=== PATIENT | female | born 1960 | race African-American/Black ===

== ENCOUNTER 2016-11-16 09:21 | Emergency (ER) | payer OTHER, SELFPAY ==
[2016-11-16 10:00] LABS: #Basophils 0.1 thou/uL (0.0-0.2); #Eosinphils 0.1 thou/uL (0.0-0.7); #Monocytes 0.3 thou/uL (0.11-0.59); #Neutrophils 2.1 thou/uL (1.40-6.50); %Basophils 1.5 % (0.0-1.0); %Eosinophils 1.7 % (0.0-10.0); %Lymphocytes 44.1 % (21.0-51.0); %Monocytes 6.8 % (0.0-10.0); %Neutrophils 45.9 % (42.0-75.0); Hemoglobin 11.7 g/dL (12.0-16.0); Mean Corpuscular HGB CONC 33.3 g/dL (32.0-36.0); Mean Corpuscular Hemoglobin 27.5 pg (27.0-31.0); Mean Corpuscular Volume 82.5 fl (81.0-99.0); Platelet Count 184 thou/uL (130-400); RBC Distribution Width 12.4 % (11.5-14.5); Red Blood Cell (RBC) Count 4.27 mill/uL (4.20-5.40); White Blood Cell (WBC) Count 4.5 thou/uL (4.8-10.8)
[2016-11-16 10:13] LABS: ALT (SGPT) 10 U/L (0-55); AST (SGOT) 13 U/L (5-34); Albumin 4.1 g/dL (3.5-5.0); Alkaline Phosphatase 64 U/L (40-150); Anion Gap 15 mmol/L (10-20); BUN (Urea Nitrogen) 12 mg/dL (9.8-20.1); Bilirubin, Total 0.8 mg/dL (0.2-1.2); Calc. Creatinine Clearance 0 mL/min (70-130); Calcium 9.5 mg/dL (7.8-10.44); Carbon Dioxide 26 mmol/L (22-29); Chloride 106 mmol/L (98-107); Estimated GFR-MDRD Greater than 90; Globulin 2.7 g/dL (2.4-3.5); Glucose 66 mg/dL (70-105); Potassium 3.8 mmol/L (3.5-5.1); Protein, Total 6.8 g/dL (6.0-8.3); Sodium 143 mmol/L (136-145)
[2016-11-16 10:15] LABS: CKMB 1.9 ng/mL (0-6.6); Troponin I 0.018 ng/mL (< 0.028)
--- NOTE | 2016-11-16 10:27 | ERRECORD ---
[facility] EMERGENCY RECORD HPI CHEST PAIN (09:33 BPIC) CHIEF COMPLAINT: Patient presents for evaluation of chest pain, ongoing. HISTORIAN: History provided by patient, pt states that she quit smoking 3 weeks ago and has a lot of stress with teenage granddaughters. she has been feeling abnormal since she quit smoking and for the past 4 days has had some chest discomfort and arm tingling. she does have some history of GERD and recently changed medication but states that she has not started taking the new medicine yet. she is also allergic to aspirin and would like to avoid medicine if possible. reports a negative stress test years ago. her pain worsened when she was cleaning a bathtub 4 days ago and it has been constant since then. the pain does worsen slightly with certain movements. ROS (09:37 BPIC) CONSTITUTIONAL: Negative constitutional review of systems, Historian denies chills, denies fever. EYES: Negative eye review of systems. ENT: Negative ears, nose, throat review of systems. CARDIOVASCULAR: Historian reports chest pain, denies dyspnea on exertion, denies edema, denies exercise intolerance, denies syncope, denies palpitations. RESPIRATORY: Negative respiratory review of systems, Historian denies cough, denies shortness of breath. GI: Negative gastrointestinal review of systems, Historian denies abdominal pain, denies constipation, denies diarrhea. MUSCULOSKELETAL: Negative musculoskeletal review of systems. SKIN: Negative skin review of systems. NEUROLOGIC: Negative neurologic review of systems. ENDOCRINE: Negative endocrine review of systems. HEMO/LYMPHATIC: Normal hematologic/lymphatic system review. PSYCHIATRIC: Negative psychiatric review of systems. NOTES: All other ROS is negative except as listed in HPI. PAST MEDICAL HISTORY MEDICAL HISTORY: Flu vaccine not up to date, Past medical history includes history of hypertension, which has been treated. (09:30 SFRE) FEMALE SURGICAL HISTORY: Surgical history of tubal ligation. (09:30 SFRE) PSYCHIATRIC HISTORY: No previous psychiatric history. (09:30 SFRE) SOCIAL HISTORY: Patient denies alcohol use, Patient denies drug use, Patient has no smoking history. (09:30 SFRE) NOTES: I have reviewed and agree with the PMH/PSxH/FamHx/SocHx obtained by the nurse. (09:37 BPIC) KNOWN ALLERGIES &a-1R&a+25V*p+0X*l7898O*c202B*c15G*c2P*p-0X&a-25V&a+1R Name: Annie Starkey : 1960 F56 MedRec: [id number] AcctNum: [id number] Prepared: MonNov 16, 2016 13:13 by Interface Page 1 of 3 pMD [facility] EMERGENCY RECORD Adult Aspirin CURRENT MEDICATIONS (09:28 SFRE) Toprol XL: TABLET, EXTENDED RELEASE 24 HR : Strength - 25 mg : ORAL Patient Dose: ???. VITAL SIGNS VITAL SIGNS: BP: 139/72, Pulse: 62, Resp: 18, Temp: 98.1 (Tympanic), Pain: 2 (Dull), O2 sat: 100 on Room Air, Time: 11/16/2016 09:26. (09:26 SFRE) BP: 129/75, Pulse: 56, Resp: 18, Temp: 98.1 (Tympanic), Pain: 2, O2 sat: 99 on Room Air, Time: 11/16/2016 09:52. (09:52 SFRE) BP: 125/79, Pulse: 55, Resp: 18, Temp: 98.1, Pain: 2, O2 sat: 100 on ra, Time: 11/16/2016 10:25. (10:25 SFRE) PHYSICAL EXAM (09:37 BPIC) CONSTITUTIONAL: Vital signs reviewed, Patient appears non toxic, Patient alert and oriented to person, place and time, Pt is in no apparent distress. HEAD: Head exam included findings of head atraumatic, normocephalic. EYES: Eye exam included findings of eyelids normal to inspection, Pupils equally round and reactive to light, Extraocular muscles intact. ENT: ENT exam normal, Nose exam normal, no nasal deformity, no bleeding from nares, Pharynx exam normal, Mouth exam normal, mucous membranes moist. NECK: Neck exam included findings of normal range of motion, Trachea midline. RESPIRATORY CHEST: Respiratory and chest exam normal, Breath sounds clear, No wheezing, No rales, Chest exam included findings of chest movement symmetrical, Chest expansion equal. CARDIOVASCULAR: Cardiovascular assessment normal, Cardiovascular exam included findings of heart rate regular rate and rhythm, Heart sounds normal, equal radial and DP pulses. ABDOMEN FEMALE: Abdominal exam included findings of abdomen nontender, Bowel sounds normal, no mass, no pulsatile masses, no peritoneal signs. BACK: Back exam included findings of normal inspection, range of motion normal, no costovertebral angle tenderness. UPPER EXTREMITY: Upper extremity exam included findings of inspection normal, Range of motion normal. LOWER EXTREMITY: Lower extremity exam included findings of inspection normal, Range of motion normal. NEURO: Neuro exam findings include patient oriented to person, place and time, Speech normal, no focal motor deficits, no focal sensory deficits. SKIN: Skin exam included findings of skin warm, dry, and normal in color. &a-1R&a+25V*p+0X*o2805Z*c202B*c15G*c2P*p-0X&a-25V&a+1R Name: Annie Starkey : 1960 F56 MedRec: [id number] AcctNum: [id number] Prepared: MonNov 16, 2016 13:13 by Interface Page 2 of 3 pMD [facility] EMERGENCY RECORD PSYCHIATRIC: Psychiatric exam included findings of patient oriented to person place and time, Normal affect. EKG INTERPRETATION (09:38 BPIC) 12 LEAD EKG INTERPRETATION: 12 lead EKG interpreted by Emergency Department Physician at time of study, 12 lead EKG shows, sinus bradycardia, Rate (beats per minute): 55, with no ectopics, Conduction normal, ST segments normal, T waves normal, Clinical impression:, non-specific EKG. RADIOLOGYINTERPRETATION (09:48 BPIC) CHEST: Chest films negative, no infiltrates, no pneumothorax. DOCTOR NOTES (10:20 BPIC) NOTES: Patient presents with atypical chest pain. Patient currently improved. Risk factors for PE, ACS, dissection all evaluated. Based on the history, exam, risk factor evaluation, and testing done here, I feel that patient is at low risk for dangerous etiologies such as PE, PTX, ACS, dissection. Other DDX considered includes pericarditis, pleurisy, costochondritis, chest wall pain, anxiety, GERD, hiatal hernia. I have encouraged the patient to arrange quick follow up and have advised of warning signs that should prompt more immediate return for evaluation. PROBLEM LIST No recorded problems DIAGNOSIS (10:20 BPIC) FINAL: PRIMARY: atypical chest pain. PRESCRIPTION No recorded prescriptions DISPOSITION PATIENT: Disposition Type: Discharge, Disposition: *Discharge Home, Condition: Good. (10:20 BPIC) Patient left the department. (10:32 SFRE) Shaw: BPIC=MD Celi, Isaias SFRE=MAGUI Fletcher, Radha &a-1R&a+25V*p+0X*l7447C*c202B*c15G*c2P*p-0X&a-25V&a+1R Name: Annie Starkey : 1960 F56 MedRec: [id number] AcctNum: [id number] Prepared: Rich Nov 16, 2016 13:13 by Interface Page 3 of 3 pMD MTDD
--- NOTE | 2016-11-16 10:33 | PICIS ---
[facility] EMERGENCY RECORD TRIAGE (MonNov 16, 2016 09:27 SFRE) TRIAGE NOTES: CP THAT STARTED MONDAY. (MonNov 16, 2016 09:27 SFRE) PATIENT: NAME: Annie Starkey, AGE: 56, GENDER: female, : Mon1960, TIME OF GREET: MonNov 16, 2016 09:22, PREFERRED LANGUAGE: Hungarian, ETHNICITY: Not or , ECODE BILLING MAP: [facility], SSN: [id number], Zip Code: [address], KG WEIGHT: 71.21, PHONE: , , , PERSON ID: [id number], PCP: MD CARIN, PREET. (MonNov 16, 2016 09:27 SFRE) COMPLAINT: CHEST PAIN,TINGLING RT ARM. (MonNov 16, 2016 09:27 SFRE) ADMISSION: URGENCY: 3 Urgent, ADMISSION SOURCE: Home, TRANSPORT: Walk-in, BED: ED -05. (MonNov 16, 2016 09:27 SFRE) ASSESSMENT: Symptoms began 12/10/2016, Symptoms began 4 days ago. (09:30 SFRE) Symptoms began 12/10/2016, Symptoms began 4 days ago. (09:38 SFRE) PAIN: Patient complains of pain described as, aching, dull, on a scale 0-10 patient rates pain as 2, Pain is intermittent, Aggravating factors:, Pain exacerbated by movement, No relieving factors. (09:30 SFRE) Patient complains of pain described as, aching, dull, on a scale 0-10 patient rates pain as 2, Pain is intermittent, Aggravating factors:, Pain exacerbated by movement, No relieving factors. (09:38 SFRE) IMMUNIZATIONS: Flu vaccine not up to date. (09:30 SFRE) SIRS SCORING: Heart Rate 55-109 (0), Temp range 96.8-101.1 (0), respiratory rate 12-24 (0), Mental Status altered: no (0). (09:30 SFRE) IMMUNIZATIONS: Flu vaccine not up to date. (09:38 SFRE) SIRS SCORING: Heart Rate 55-109 (0), Temp range 96.8-101.1 (0), respiratory rate 12-24 (0), Mental Status altered: no (0). (09:38 SFRE) TRIAGE SCREENING: Patient denies suicidal ideation, Patient denies presence of domestic violence. (09:30 SFRE) Patient denies suicidal ideation, Patient denies presence of domestic violence. (09:38 SFRE) PROVIDERS: TRIAGE NURSE: Radha Fletcher RN. (MonNov 16, 2016 09:27 SFRE) VITAL SIGNS: BP 139/72, Pulse 62, Resp 18, Temp 98.1, (Tympanic), Pain 2, (Dull), O2 Sat 100, on Room Air, Time 11/16/2016 09:26. (09:26 SFRE) PREVIOUS VISIT ALLERGIES: Adult Aspirin. (MonNov 16, 2016 09:27 SFRE) Adult Aspirin. (09:30 SFRE) Adult Aspirin. (09:38 SFRE) KNOWN ALLERGIES Adult Aspirin &a-1R&a+25V*p+0X*k2940N*c202B*c15G*c2P*p-0X&a-25V&a+1R Name: Annie Starkey : 1960 F56 MedRec: [id number] AcctNum: [id number] Prepared: MonNov 16, 2016 13:20 by Interface Page 1 of 7 pMD [facility] EMERGENCY RECORD CURRENT MEDICATIONS (09:28 SFRE) Toprol XL: TABLET, EXTENDED RELEASE 24 HR : Strength - 25 mg : ORAL Patient Dose: ???. VITAL SIGNS VITAL SIGNS: BP: 139/72, Pulse: 62, Resp: 18, Temp: 98.1 (Tympanic), Pain: 2 (Dull), O2 sat: 100 on Room Air, Time: 11/16/2016 09:26. (09:26 SFRE) BP: 129/75, Pulse: 56, Resp: 18, Temp: 98.1 (Tympanic), Pain: 2, O2 sat: 99 on Room Air, Time: 11/16/2016 09:52. (09:52 SFRE) BP: 125/79, Pulse: 55, Resp: 18, Temp: 98.1, Pain: 2, O2 sat: 100 on ra, Time: 11/16/2016 10:25. (10:25 SFRE) NURSING PROCEDURE: BEDSIDE RADIOLOGY (09:41 SFRE) BEDSIDE RADIOLOGY: Bedside radiology performed by VERO, Portable chest x-ray performed. NURSING PROCEDURE: MVA REACTOR OPERATOR (09:27 SFRE) MVA REACTOR OPERATOR: Cardiac monitoring indicated for complaint of chest pain, Patient placed on manager personal, Heart rate: 62, showing sinus bradycardia, without ectopy, with no ST segment changes, Patient placed on non-invasive blood pressure monitor, with disposable blood pressure cuff applied, Patient placed on continuous pulse oximetry, Adult/pediatric oxisensor applied, Oxygen saturation 100%. NURSING PROCEDURE: DISCHARGE NOTE (10:25 SFRE) DISCHARGE: Patient discharged to home, ambulating without assistance, driving self, accompanied by friend, Summary of Care printed/ provided, Patient requested and was provided an electronic copy of Discharge Instructions, Discharge instructions given to patient, Simple or moderate discharge teaching performed, by MAGUI LEVY, F/U WITH PCP. RX DIRECTED. RETURN TO ED NEEDED FOR NEW/CONCERNING OR WORSENING SYMPTOMS., Above person(s) verbalized understanding of discharge instructions and follow-up care. VITAL SIGNS: BP: 125, / 79, Pulse: 55, Resp: 18, Temp: 98.1, Pain: 2, O2 sat: 100, on: ra. NURSING PROCEDURE: EKG CHART (09:39 SFRE) EKG: EKG indicated for complaint of chest pain, 12 lead EKG performed on the left chest, done by MAGUI LEVY, first EKG. FOLLOW-UP: After procedure, EKG for interpretation given to Dr. ARAMBULA. ORDER DETAILS Order Name: Cardiac Profile w/CKMB & Troponin - I, Status: Active, &a-1R&a+25V*p+0X*x0846L*c202B*c15G*c2P*p-0X&a-25V&a+1R Name: Annie Starkey : 1960 F56 MedRec: [id number] AcctNum: [id number] Prepared: MonNov 16, 2016 13:20 by Interface Page 2 of 7 pMD [facility] EMERGENCY RECORD Time: 09:33 11/16/2016, User: [email or web address], - Ordered for: MD Arambula Bryan, - Entered by: MD Arambula Bryan - [facility] Nov 16, 2016 09:33, - Quantity: 1, Order Name: CBC with Differential, Status: Active, Time: :33 11/16/2016, User: BPIC, - Ordered for: MD Arambula Bryan, - Entered by: MD Arambula Bryan - [facility] Nov 16, 2016 09:33, - Quantity: 1, Order Name: Comprehensive Metabolic Panel, Status: Active, Time: 09:33 11/16/2016, User: BPIC, - Ordered for: MD Arambula Bryan, - Entered by: MD Arambula Bryan - [facility] Nov 16, 2016 09:33, - Quantity: 1, Order Name: EKG 12 Lead in Emergency Room, Status: Active, Time: :33 11/16/2016, User: BPIC, - Ordered for: MD Arambula Bryan, - Entered by: MD Arambula Bryan - [facility] Nov 16, 2016 09:33, - Quantity: 1, Order Name: XR Chest 1 View Portable, Status: Active, Time: 09:33 11/16/2016, User: BPIC, - Ordered for: MD Aarmbula Bryan, - Entered by: MD Arambula Bryan - [facility] Nov 16, 2016 09:33, - Quantity: 1. HPI CHEST PAIN (09:33 BPIC) CHIEF COMPLAINT: Patient presents for evaluation of chest pain, ongoing. HISTORIAN: History provided by patient, pt states that she quit smoking 3 weeks ago and has a lot of stress with teenage granddaughters. she has been feeling abnormal since she quit smoking and for the past 4 days has had some chest discomfort and arm tingling. she does have some history of GERD and recently changed medication but states that she has not started taking the new medicine yet. she is also allergic to aspirin and would like to avoid medicine if possible. reports a negative stress test years ago. her pain worsened when she was cleaning a bathtub 4 days ago and it has been constant since then. the pain does worsen slightly with certain movements. ROS (09:37 BPIC) CONSTITUTIONAL: Negative constitutional review of systems, Historian denies chills, denies fever. EYES: Negative eye review of systems. ENT: Negative ears, nose, throat review of systems. CARDIOVASCULAR: Historian reports chest pain, denies dyspnea on exertion, denies edema, denies exercise intolerance, denies syncope, denies palpitations. RESPIRATORY: Negative respiratory review of systems, Historian denies cough, denies shortness of breath. &a-1R&a+25V*p+0X*d2084L*c202B*c15G*c2P*p-0X&a-25V&a+1R Name: Annie Starkey : 1960 F56 MedRec: [id number] AcctNum: [id number] Prepared: MonNov 16, 2016 13:20 by Interface Page 3 of 7 pMD [facility] EMERGENCY RECORD GI: Negative gastrointestinal review of systems, Historian denies abdominal pain, denies constipation, denies diarrhea. MUSCULOSKELETAL: Negative musculoskeletal review of systems. SKIN: Negative skin review of systems. NEUROLOGIC: Negative neurologic review of systems. ENDOCRINE: Negative endocrine review of systems. HEMO/LYMPHATIC: Normal hematologic/lymphatic system review. PSYCHIATRIC: Negative psychiatric review of systems. NOTES: All other ROS is negative except as listed in HPI. PAST MEDICAL HISTORY MEDICAL HISTORY: Flu vaccine not up to date, Past medical history includes history of hypertension, which has been treated. (09:30 SFRE) FEMALE SURGICAL HISTORY: Surgical history of tubal ligation. (09:30 SFRE) PSYCHIATRIC HISTORY: No previous psychiatric history. (09:30 SFRE) SOCIAL HISTORY: Patient denies alcohol use, Patient denies drug use, Patient has no smoking history. (09:30 SFRE) NOTES: I have reviewed and agree with the PMH/PSxH/FamHx/SocHx obtained by the nurse. (09:37 BPIC) PHYSICAL EXAM (09:37 BPIC) CONSTITUTIONAL: Vital signs reviewed, Patient appears non toxic, Patient alert and oriented to person, place and time, Pt is in no apparent distress. HEAD: Head exam included findings of head atraumatic, normocephalic. EYES: Eye exam included findings of eyelids normal to inspection, Pupils equally round and reactive to light, Extraocular muscles intact. ENT: ENT exam normal, Nose exam normal, no nasal deformity, no bleeding from nares, Pharynx exam normal, Mouth exam normal, mucous membranes moist. NECK: Neck exam included findings of normal range of motion, Trachea midline. RESPIRATORY CHEST: Respiratory and chest exam normal, Breath sounds clear, No wheezing, No rales, Chest exam included findings of chest movement symmetrical, Chest expansion equal. CARDIOVASCULAR: Cardiovascular assessment normal, Cardiovascular exam included findings of heart rate regular rate and rhythm, Heart sounds normal, equal radial and DP pulses. ABDOMEN FEMALE: Abdominal exam included findings of abdomen nontender, Bowel sounds normal, no mass, no pulsatile masses, no peritoneal signs. BACK: Back exam included findings of normal inspection, range of motion normal, no costovertebral angle tenderness. UPPER EXTREMITY: Upper extremity exam included findings of &a-1R&a+25V*p+0X*a7390B*c202B*c15G*c2P*p-0X&a-25V&a+1R Name: Annie Starkey : 1960 F56 MedRec: [id number] AcctNum: [id number] Prepared: MonNov 16, 2016 13:20 by Interface Page 4 of 7 pMD [facility] EMERGENCY RECORD inspection normal, Range of motion normal. LOWER EXTREMITY: Lower extremity exam included findings of inspection normal, Range of motion normal. NEURO: Neuro exam findings include patient oriented to person, place and time, Speech normal, no focal motor deficits, no focal sensory deficits. SKIN: Skin exam included findings of skin warm, dry, and normal in color. PSYCHIATRIC: Psychiatric exam included findings of patient oriented to person place and time, Normal affect. EVENTS TRANSFER: Triage to Emergency Main ED -05. (MonNov 16, 2016 09:27 SFRE) Removed from Emergency Main ED -05. (10:32 SFRE) RADIOLOGYINTERPRETATION (09:48 BPIC) CHEST: Chest films negative, no infiltrates, no pneumothorax. EKG INTERPRETATION (09:38 BPIC) 12 LEAD EKG INTERPRETATION: 12 lead EKG interpreted by Emergency Department Physician at time of study, 12 lead EKG shows, sinus bradycardia, Rate (beats per minute): 55, with no ectopics, Conduction normal, ST segments normal, T waves normal, Clinical impression:, non-specific EKG. DOCTOR NOTES (10:20 BPIC) NOTES: Patient presents with atypical chest pain. Patient currently improved. Risk factors for PE, ACS, dissection all evaluated. Based on the history, exam, risk factor evaluation, and testing done here, I feel that patient is at low risk for dangerous etiologies such as PE, PTX, ACS, dissection. Other DDX considered includes pericarditis, pleurisy, costochondritis, chest wall pain, anxiety, GERD, hiatal hernia. I have encouraged the patient to arrange quick follow up and have advised of warning signs that should prompt more immediate return for evaluation. PROBLEM LIST No recorded problems DIAGNOSIS (10:20 BPIC) FINAL: PRIMARY: atypical chest pain. DISPOSITION PATIENT: Disposition Type: Discharge, Disposition: *Discharge Home, Condition: Good. (10:20 BPIC) Patient left the department. (10:32 SFRE) INSTRUCTION (10:21 BPIC) DISCHARGE: ATYPICAL CHEST PAIN UNKNOWN CAUSE. &a-1R&a+25V*p+0X*v0930V*c202B*c15G*c2P*p-0X&a-25V&a+1R Name: Annie Starkey : 1960 F56 MedRec: [id number] AcctNum: [id number] Prepared: MonNov 16, 2016 13:20 by Interface Page 5 of 7 pMD [facility] EMERGENCY RECORD FOLLOWUP: MD CARIN, [facility], [facility], [address] [place] [id number], [phone]. SPECIAL: Thank you for [facility] for your care today! Please follow up with your doctor in the next 2-3 days. Return to the emergency department with any emergent or worsening concerns. God Bless you!. PRESCRIPTION No recorded prescriptions IMAGING *DISCHARGE INSTRUCTIONS RECEIPT: Image captured from scanner. (10:27 SFRE) *SUPPLY CHARGE SHEET: Image captured from scanner. (10:28 SFRE) VITAL SIGNS: Image captured from scanner. (10:28 SFRE) *EKG: Image captured from scanner. (10:28 SFRE) ADMIN DIGITAL SIGNATURE: MD Arambula Bryan. (10:20 BPIC) MD Arambula Bryan. (13:08 BPIC) RESULTS (10:19 BPIC) LABORATORY: CBC with Differential Collection DT: MonNov 16, 2016 10:16, *White Blood Cell (WBC) Count 4.5 - L thou/uL, Range (4.8-10.8), Red Blood Cell (RBC) Count 4.27 mill/uL, Range (4.20-5.40), *Hemoglobin 11.7 - L g/dL, Range (12.0-16.0), *Hematocrit 35.2 - L %, Range (36.0-47.0), Mean Corpuscular Volume 82.5 fl, Range (81.0-99.0), Mean Corpuscular Hemoglobin 27.5 pg, Range (27.0-31.0), Mean Corpuscular HGB CONC 33.3 g/dL, Range (32.0-36.0), RBC Distribution Width 12.4 %, Range (11.5-14.5), Platelet Count 184 thou/uL, Range (130-400), Mean Platelet Volume 9.0 fL, Range (7.4-10.4), %Neutrophils 45.9 %, Range (42.0-75.0), %Lymphocytes 44.1 %, Range (21.0-51.0), %Monocytes 6.8 %, Range (0.0-10.0), %Eosinophils 1.7 %, Range (0.0-10.0), *%Basophils 1.5 - H %, Range (0.0-1.0), #Neutrophils 2.1 thou/uL, Range (1.40-6.50), #Lymphocytes 2.0 thou/uL, Range (1.20-3.40), #Monocytes 0.3 thou/uL, Range (0.11-0.59), #Eosinphils 0.1 thou/uL, Range (0.0-0.7), #Basophils 0.1 thou/uL, Range (0.0-0.2). Comprehensive Metabolic Panel Collection DT: MonNov 16, 2016 10:15, Sodium 143 mmol/L, Range (136-145), Potassium 3.8 mmol/L, Range (3.5-5.1), Chloride 106 mmol/L, Range (98-107), Carbon Dioxide 26 mmol/L, Range (22-29), Anion Gap 15 mmol/L, Range (10-20), &a-1R&a+25V*p+0X*c9410U*c202B*c15G*c2P*p-0X&a-25V&a+1R Name: Annie Starkey : 1960 F56 MedRec: [id number] AcctNum: [id number] Prepared: MonNov 16, 2016 13:20 by Interface Page 6 of 7 pMD [facility] EMERGENCY RECORD BUN (Urea Nitrogen) 12 mg/dL, Range (9.8-20.1), Creatinine 0.76 mg/dL, Range (0.6-1.1), Estimated GFR-MDRD Greater than 90 , Reference Range for Estimated GFR: Greater than 90, mL/min/1.73 m2 NOTE: The MDRD equation has not been validated for use, with the elderly (over 70 years of age), women, patients with, serious comorbid condition or persons with extremes of body size, muscle, mass, or nutritional status. , *Glucose 66 - L mg/dL, Range (70-105), Calcium 9.5 mg/dL, Range (7.8-10.44), Bilirubin, Total 0.8 mg/dL, Range (0.2-1.2), Protein, Total 6.8 g/dL, Range (6.0-8.3), NOTE: Plasma values are generally 0.3 to 0.5 g/dL higher than serum values, due to the presence of fibrinogen. , Albumin 4.1 g/dL, Range (3.5-5.0), Globulin 2.7 g/dL, Range (2.4-3.5), Alb/Glob Ratio 1.5 g/dL, Range (1.2-2.2), Alkaline Phosphatase 64 U/L, Range (40-150), AST (SGOT) 13 U/L, Range (5-34), ALT (SGPT) 10 U/L, Range (0-55). Cardiac Profile w/CKMB & TropI Collection DT: MonNov 16, 2016 10:18, CKMB 1.9 ng/mL, Range (0-6.6), Troponin I 0.018 ng/mL, Range (< 0.028), Reference Range , 0.00 - 0.028 ng/mL Negative 0.029 - 0.29 ng/mL , Indeterminate Greater or Equal to 0.3 ng/mL Strongly suggests HI , . Shaw: BPIC=MD Celi, Isaias SFRE=MAGUI Fletcher, Radha &a-1R&a+25V*p+0X*e3274N*c202B*c15G*c2P*p-0X&a-25V&a+1R Name: Annie Starkey : 1960 F56 MedRec: [id number] AcctNum: [id number] Prepared: Rich Nov 16, 2016 13:20 by Interface Page 7 of 7 pMD MTDD
--- NOTE | 2016-11-16 10:48 | RAD ---
PORTABLE AP CHEST: Date: 11/16/16 HISTORY: Chest pain. COMPARISON: 01/19/11. FINDINGS: Cardiac silhouette and pulmonary vasculature are within normal limits. Lungs are clear. There has be en on interval change from the prior exam. IMPRESSION: No acute cardiopulmonary process. POS: [facility]
== END 2016-11-16 10:26 | disposition home or self-care (01) ==
LOC: MADERS 09:21
DX: R07.89 Other chest pain (principal); I10 Essential (primary) hypertension
CPT/HCPCS: 71010; 80053; 82553; 84484; 85025; 93005

== ENCOUNTER 2017-04-09 08:27 | Outpatient (CLI) | payer OTHER ==
[2017-04-09 10:41] LABS: ALT (SGPT) 11 U/L (8-55); AST (SGOT) 13 U/L (5-34); Albumin 4.2 g/dL (3.5-5.0); Alkaline Phosphatase 60 U/L (40-150); Anion Gap 11 mmol/L (10-20); BUN (Urea Nitrogen) 9 mg/dL (9.8-20.1); Calc. Creatinine Clearance 0 mL/min (70-130); Calcium 9.5 mg/dL (7.8-10.44); Carbon Dioxide 28 mmol/L (22-29); Chloride 107 mmol/L (98-107); Cholesterol 184 mg/dl (< 200 Desired); Estimated GFR-MDRD 87; Globulin 3.5 g/dL (2.4-3.5); Glucose 98 mg/dL (70-105); HDL Cholesterol 61 mg/dL (>60 Neg Risk); LDL Cholesterol, Calculated 106 mg/dL; Potassium 4.1 mmol/L (3.5-5.1); Protein, Total 7.7 g/dL (6.0-8.3); Sodium 142 mmol/L (136-145); Triglycerides 83 mg/dL (Less than 150)
== END 2017-04-09 08:28 | disposition home or self-care (01) ==
LOC: MADLAB 08:27
PROVIDERS: ATTEND Family Medicine
DX: I10 Essential (primary) hypertension (principal)
CPT/HCPCS: 36415; 80053; 80061

== ENCOUNTER 2019-12-07 23:28 | Emergency (ER) | payer OTHER ==
[2019-12-08 00:27] LABS: #Basophils 0.1 thou/uL (0.0-0.2); #Eosinphils 0.2 thou/uL (0.0-0.7); #Lymphocytes 2.6 thou/uL (1.20-3.40); #Monocytes 0.4 thou/uL (0.11-0.59); #Neutrophils 2.6 thou/uL (1.40-6.50); %Basophils 2.2 % (0.0-1.0); %Eosinophils 2.6 % (0.0-10.0); %Lymphocytes 44.5 % (21.0-51.0); %Monocytes 6.3 % (0.0-10.0); %Neutrophils 44.4 % (42.0-75.0); Hemoglobin 11.5 g/dL (12.0-16.0); Mean Corpuscular HGB CONC 30.4 g/dL (32.0-36.0); Mean Corpuscular Hemoglobin 25.6 pg (27.0-31.0); Mean Corpuscular Volume 84.3 fL (78.0-98.0); Mean Platelet Volume 6.8 fL (7.4-10.4); Platelet Count 219 thou/uL (130-400); RBC Distribution Width 12.4 % (11.5-14.5); Red Blood Cell (RBC) Count 4.49 mill/uL (4.20-5.40); White Blood Cell (WBC) Count 5.9 thou/uL (4.8-10.8)
[2019-12-08 01:34] LABS: ALT (SGPT) 15 U/L (8-55); AST (SGOT) 13 U/L (5-34); Albumin 4.1 g/dL (3.4-4.8); Alkaline Phosphatase 60 U/L (40-110); Anion Gap 10 mmol/L (10-20); BUN (Urea Nitrogen) 13 mg/dL (9.8-20.1); Calc. Creatinine Clearance 0 mL/min (70-130); Calcium 9.1 mg/dL (7.8-10.44); Carbon Dioxide 25 mmol/L (23-31); Chloride 109 mmol/L (98-107); Estimated GFR-MDRD Greater than 90; Glucose 118 mg/dL (80-115); Potassium 3.4 mmol/L (3.5-5.1); Sodium 141 mmol/L (136-145)
[2019-12-08 01:41] LABS: Globulin 3.1 g/dL (2.4-3.5); Protein, Total 7.2 g/dL (6.0-8.3)
[2019-12-08 01:48] LABS: Bilirubin, Total 0.4 mg/dL (0.2-1.2)
== END 2019-12-08 01:55 | disposition home or self-care (01) ==
LOC: MADERS 23:28
DX: F41.9 Anxiety disorder, unspecified (principal); E78.5 Hyperlipidemia, unspecified; E78.00 Pure hypercholesterolemia, unspecified; I10 Essential (primary) hypertension; F17.210 Nicotine dependence, cigarettes, uncomplicated
CPT/HCPCS: 80053; 84443; 84484; 85025; 93005

== ENCOUNTER 2022-05-25 16:39 | Outpatient (CLI) | payer BC ==
[2022-05-25 17:28] LABS: ALT (SGPT) 16 U/L (8-55); AST (SGOT) 14 U/L (5-34); Albumin 4.4 g/dL (3.4-4.8); Alkaline Phosphatase 58 U/L (40-110); Anion Gap 14 mmol/L (10-20); BUN (Urea Nitrogen) 8 mg/dL (9.8-20.1); Bilirubin, Total 0.8 mg/dL (0.2-1.2); Calc. Creatinine Clearance 0 mL/min (70-130); Calcium 10.3 mg/dL (7.8-10.44); Carbon Dioxide 29 mmol/L (23-31); Cardiac Risk 2.2 (Less than 4.5); Chloride 106 mmol/L (98-107); Cholesterol 149 mg/dl (< 200 Desired); Estimated GFR 88; Glucose 87 mg/dL (80-115); HDL Cholesterol 69 mg/dL (>60 Neg Risk); LDL Cholesterol, Calculated 65 mg/dL; Potassium 4.3 mmol/L (3.5-5.1); Protein, Total 7.4 g/dL (5.8-8.1); Sodium 145 mmol/L (136-145); Triglycerides 77 mg/dL (Less than 150)
[2022-05-25 23:13] LABS: HIV (1/2) Antibody/Antigen Non-Reactive (NonReactive); HIV 1/2 INDEX 0.17 S/CO (<1.00); Vitamin D, 25 Hydroxy 56.4 ng/ml (> 30.0)
== END 2022-05-25 16:40 | disposition home or self-care (01) ==
LOC: MADLABSP 16:39
PROVIDERS: ATTEND Family Medicine
DX: Z01.419 Encounter for gynecological examination (general) (routine) without abnormal findings (principal); E55.9 Vitamin D deficiency, unspecified
CPT/HCPCS: 80053; 80061; 82306; 87389; 88175

== ENCOUNTER 2022-12-13 08:42 | Emergency (ER) | payer BC ==
[2022-12-13 09:20] LABS: #Lymphocytes 1.6 thou/uL (1.20-3.40); #Monocytes 0.3 thou/uL (0.11-0.59); #Neutrophils 1.2 thou/uL (1.40-6.50); %Eosinophils 1.6 % (0.0-10.0); %Lymphocytes 49.6 % (21.0-51.0); %Monocytes 9.4 % (0.0-10.0); %Neutrophils 38.5 % (42.0-75.0); Hemoglobin 11.9 g/dL (12.0-16.0); Mean Corpuscular HGB CONC 32.8 g/dL (32.0-36.0); Mean Corpuscular Hemoglobin 26.7 pg (27.0-31.0); Mean Corpuscular Volume 81.4 fl (78.0-98.0); Mean Platelet Volume 7.5 fL (7.4-10.4); Platelet Count 184 10x3/uL (130-400); RBC Distribution Width 11.7 % (11.5-14.5); Red Blood Cell (RBC) Count 4.47 mill/uL (4.20-5.40); White Blood Cell (WBC) Count 3.2 10x3/uL (4.8-10.8)
[2022-12-13 09:26] LABS: INR-International Normal Ratio 0.9; Prothrombin Time 12.3 sec (12.0-14.7)
[2022-12-13 09:27] LABS: PTT 26.9 sec (22.9-36.1)
[2022-12-13 09:38] LABS: ALT (SGPT) 17 U/L (8-55); AST (SGOT) 15 U/L (5-34); Albumin 4.2 g/dL (3.4-4.8); Alkaline Phosphatase 53 U/L (40-110); Anion Gap 15 mmol/L (10-20); BUN (Urea Nitrogen) 10 mg/dL (9.8-20.1); Bilirubin, Total 0.6 mg/dL (0.2-1.2); Calc. Creatinine Clearance 0 mL/min (70-130); Calcium 9.2 mg/dL (7.8-10.44); Carbon Dioxide 24 mmol/L (23-31); Chloride 106 mmol/L (98-107); Estimated GFR 86; Globulin 2.9 g/dL (2.4-3.5); Glucose 101 mg/dL (80-115); Lipase 24 U/L (8-78); Magnesium 1.6 mg/dL (1.6-2.6); Potassium 3.6 mmol/L (3.5-5.1); Protein, Total 7.1 g/dL (5.8-8.1); Sodium 141 mmol/L (136-145)
[2022-12-13] MEDS ORDERED: Nitroglycerin 0.4 MG TAB 1 EACH ONE (14:13)
== END 2022-12-13 14:38 | disposition short-term general hospital (02) ==
LOC: MADERS 08:42
DX: R07.89 Other chest pain (principal); R00.2 Palpitations; I10 Essential (primary) hypertension; E78.00 Pure hypercholesterolemia, unspecified; F17.210 Nicotine dependence, cigarettes, uncomplicated
CPT/HCPCS: 71045; 80053; 83690; 83735; 83880; 84439; 84443; 84484; 85025; 85379; 85610; 85730; 93005

== ENCOUNTER 2025-06-26 09:03 | Outpatient (CLI) | payer MEDICARE ==
[2025-06-26 10:01] LABS: Anion Gap 14 mmol/L (10-20); BUN (Urea Nitrogen) 10 mg/dL (9.8-20.1); Calc. Creatinine Clearance 0 mL/min (70-130); Calcium 9.4 mg/dL (7.8-10.44); Carbon Dioxide 24 mmol/L (23-31); Chloride 107 mmol/L (98-107); Glucose 104 mg/dL (80-115); Potassium 3.9 mmol/L (3.5-5.1); Sodium 141 mmol/L (136-145)
== END 2025-06-26 09:04 | disposition home or self-care (01) ==
LOC: MADLAB 09:03
PROVIDERS: ATTEND Nurse Practitioner Family
DX: Z13.1 Encounter for screening for diabetes mellitus (principal); I10 Essential (primary) hypertension
CPT/HCPCS: 36415; 80048; 83036